=== PATIENT | male | born 1945 | race Caucasian/White ===

== ENCOUNTER → 2017-09-17 | Outpatient (CLI) | payer MEDICARE | END | disposition home or self-care (01) | LOC: PCVCCLINIC 16:07 | PROVIDERS: ATTEND Internal Medicine | DX: I49.3 Ventricular premature depolarization (principal); R06.02 Shortness of breath; G47.33 Obstructive sleep apnea (adult) (pediatric); Z79.82 Long term (current) use of aspirin; Z87.891 Personal history of nicotine dependence; Z79.899 Other long term (current) drug therapy | CPT/HCPCS: 93005; G0463 ==

== ENCOUNTER → 2017-10-03 | Outpatient (CLI) | payer MEDICARE ==
--- NOTE | 2017-10-03 16:04 | PCVCIMAG ---
APPROVED REPORT Study performed: 10/03/2017 10:10:39 EXAM: Comprehensive 2D, Doppler, and color-flow Echocardiogram Patient Location: Echo lab Status: routine BSA: 2.10 HR: 55 bpm Rhythm: NSR Other Information Study Quality: Good Indications PVC's. Sleep apnea, Dyspnea 2D Dimensions LVEF(%): 76.41 (>50%) IVSd: 7.26 (7-11mm) LVDd: 48.64 mm LVPWs: 23.99 mm PWd: 7.36 (7-11mm)Ascending Ao: 41.63 (22-36mm) LVDs: 26.65 (25-40mm) Left Atrium: 38.31 (27-40mm) Aortic Root: 37.19 mm LV Single Plane 4CH: 52.61 % LV Single Plane 2CH: 74.52 %Lomax's LVEF: 63.56 % Volumes Left Atrial Volume (Systole) Single Plane 4CH: 59.54 mLSingle Plane 2CH: 64.47 mL LA ESV Index: 30.00 mL/m2 Aortic Valve AoV Peak Corey.: 1.84 m/s AO Peak Gr.: 13.52 mmHgLVOT Max P.57 mmHg LVOT Max V: 1.18 m/s Mitral Valve E/A Ratio: 0.9 MV Decel. Time: 420.18 ms MV E Max Corey.: 0.53 m/s MV A Corey.: 0.57 m/s IVRT: 96.89 ms TDI E/Lateral E': 4.42E/Medial E': 8.83 Medial E' Corey.: 0.06 m/s Lateral E' Corey.: 0.12 m/s Pulmonary Valve PV Peak Gr.: 2.32 mmHg Pulmonary Vein P Vein S: 0.61 m/sP Vein A: 0.28 m/s P Vein D: 0.44 m/sP Vein A Dur.: 83.0 msec P Vein S/D Ratio: 1.39 Tricuspid Valve TR Peak Corey.: 2.23 m/s TR Peak Gr.: 19.97 mmHg Left Ventricle The left ventricle is normal size. There is normal LV segmental wall motion. There is normal left ventricular wall thickness. Left ventricular systolic function is normal. The left ventricular ejection fraction is within the normal range. LVEF is 65%. The left ventricular diastolic function is normal. Right Ventricle The right ventricle is normal size. The right ventricular systolic function is normal. Atria The left atrium size is normal. The right atrium size is normal. Aortic Valve The aortic valve is normal in structure. No aortic regurgitation is present. There is no aortic valvular stenosis. Mitral Valve The mitral valve is normal in structure. There is no mitral valve regurgitation noted. No evidence of mitral valve stenosis. Tricuspid Valve The tricuspid valve is normal in structure. Trace tricuspid regurgitation. Pulmonary artery pressure 27mmhg. Pulmonic Valve The pulmonary valve is normal in structure. There is no pulmonic valvular regurgitation. Great Vessels The aortic root is normal in size. IVC is normal in size and collapses with >50% inspiration Pericardium There is no pericardial effusion. <Conclusion> Left ventricular systolic function is normal. There is normal LV segmental wall motion. LVEF is 65%. Normal diastolic function The aortic valve is normal in structure. No aortic regurgitation or stenosis The mitral valve is normal in structure. No mitral valve regurgitation noted. 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 There is no pericardial effusion.
--- NOTE | 2017-10-03 16:18 | PCVCIMAG ---
APPROVED REPORT Patient Location: Echo lab Room #: Stress Nurse: Carlita Trejo RN INDICATIONS: Palpitations,obst sleep apnea, pre-op clearance The patient exercised according to the Cem Protocol for 9:01 minutes, achieving a maximum work level of 10.10 METS. The resting heart rate of 54 bpm, leia to a maximal level of 136 bpm. This value represents 91% of the maximal, age-predicted heart rate. The resting blood pressure of118/78 mmHg, leia to a maximum blood pressure of158/80 mmHg. The exercise was stopped due to maximal effort. Resting EKG: Sinus bradycardia normal tracing The stress electrocardiogram demonstrated occasional isolated premature ventricular complexes. There were no ST segment shifts diagnostic of myocardial ischemia. Conclusion 1. Maximal treadmill exercise study negative for exercise-induced myocardial ischemia. 2. There were no subjective signs of ischemia such as chest pain or anginal-like symptoms. No ischemic or echocardiographic changes. 3. The study was associated with good exercise capacity (10.1 METS).
== END | disposition home or self-care (01) ==
LOC: PCVCIMAG 10:03
PROVIDERS: ATTEND Internal Medicine
DX: I49.3 Ventricular premature depolarization (principal); R06.02 Shortness of breath; G47.33 Obstructive sleep apnea (adult) (pediatric); R00.2 Palpitations
CPT/HCPCS: 93005; 93017; 93306